=== PATIENT | male | born 1985 | race Two or more races ===

== ENCOUNTER 2019-03-08 16:57 | Inpatient (IN) | payer OTHER ==
[2019-03-08 17:07] VITALS: BMI 29.8
--- NOTE | 2019-03-08 17:10 | PDOC ---
Rapid Medical Evaluation Time Seen by Provider: 03/08/19 17:04 Medical Evaluation: 03/08/19 17:05 Pt presents to the ER after falling at [employer]. He states he was dizzy and fell three times and hit his head. Denies blacking out. Family states he was diaphoretic after coming out of the bathroom. Exam: no gross neuro deficits, lungs CTAB. No obvious trauma Orders: EKG, labs, urine Pt to proceed to the ER for further evaluation Discharge Disposition - Diagnosis Pre-syncope - Referrals - Patient Instructions - Post Discharge Activity
[2019-03-08 18:36] LABS: BASO % 0.3 % (0-2.0); EOS % 0.5 % (0-4.5); HEMATOCRIT 44.9 % (35.4-49); HEMOGLOBIN 14.5 GM/dL (11.7-16.9); LYMPH % 14.9 % (8-40); MCH 27.3 pg (25.7-33.7); MCHC 32.4 g/dl (32.0-35.9); MEAN CELL VOLUME 84.2 fl (80-96); MEAN PLT VOLUME 9.5 fl (7.5-11.1); MONO % 9.5 % (3.8-10.2); NEUT % 74.8 % (42.8-82.8); PLATELET COUNT 200 K/MM3 (134-434); RBC 5.33 M/mm3 (4.00-5.60); RDW 14.1 % (11.9-15.9); WHITE BLOOD COUNT 15.6 K/mm3 (4.0-10.0)
[2019-03-08 18:41] LABS: URINE APPEARANCE CLEAR; URINE BILIRUBIN NEGATIVE (NEGATIVE); URINE COLOR YELLOW; URINE GLUCOSE (UA) NEGATIVE (NEGATIVE); URINE KETONE NEGATIVE (NEGATIVE); URINE LEUK ESTERASE NEGATIVE (NEGATIVE); URINE NITRITE NEGATIVE (NEGATIVE); URINE PROTEIN NEGATIVE (NEGATIVE); URINE UROBILINOGEN 0.2 mg/dL (0.2-1.0)
[2019-03-08 18:56] LABS: ALBUMIN 4.2 g/dl (3.4-5.0); ALK PHOS 79 U/L (45-117); ANION GAP 7 MMOL/L (8-16); BILIRUBIN,TOTAL 0.3 mg/dL (0.2-1); BLOOD UREA NITROGEN 18.4 mg/dL (7-18); CALCIUM 9.5 mg/dL (8.5-10.1); CHLORIDE 106 mmol/L (98-107); CO2 26 mmol/L (21-32); CREATININE 1.4 mg/dL (0.55-1.3); GLUCOSE,RANDOM 110 mg/dL (74-106); POTASSIUM 3.4 mmol/L (3.5-5.1); SGOT/AST 23 U/L (15-37); SGPT/ALT 58 U/L (13-61); SODIUM 139 mmol/L (136-145); TOT PROT 7.7 g/dl (6.4-8.2)
--- NOTE | 2019-03-08 19:38 | PDOC ---
*Physical Exam - Vital Signs Last Vital Signs Temp Pulse Resp BP Pulse Ox 97.8 F 116 H 14 160/85 98 03/08/19 17:04 03/08/19 17:04 03/08/19 17:04 03/08/19 17:04 03/08/19 17:04 ED Treatment Course - LABORATORY CBC & Chemistry Diagram: 03/08/19 18:10 03/08/19 18:10 - ADDITIONAL ORDERS Additional order review: Laboratory Results 03/08/19 03/08/19 18:20 18:10 Sodium 139 Potassium 3.4 L Chloride 106 Carbon Dioxide 26 Anion Gap 7 L BUN 18.4 H Creatinine 1.4 H Est GFR (CKD-EPI)AfAm 77.04 Est GFR (CKD-EPI)NonAf 66.47 Random Glucose 110 H Calcium 9.5 Total Bilirubin 0.3 AST 23 ALT 58 Alkaline Phosphatase 79 Total Protein 7.7 Albumin 4.2 Urine Color Yellow Urine Appearance Clear Urine pH 5.0 Ur Specific [place] 1.017 Urine Protein Negative Urine Glucose (UA) Negative Urine Ketones Negative Urine Blood Negative Urine Nitrite Negative Urine Bilirubin Negative Urine Urobilinogen 0.2 Ur Leukocyte Esterase Negative 03/08/19 18:10 RBC 5.33 MCV 84.2 MCHC 32.4 RDW 14.1 MPV 9.5 Neutrophils % 74.8 Lymphocytes % 14.9 Monocytes % 9.5 Eosinophils % 0.5 Basophils % 0.3 Medical Decision Making - Medical Decision Making 03/08/19 19:38 Patient seen by the advanced practice provider under my direct supervision. Ancillary testing reviewed as necessary. I agree with plan as outlined by the advanced practice provider. Discharge - Discharge Information Problems reviewed: Yes Clinical Impression/Diagnosis: Pre-syncope - Follow up/Referral Referrals: ON STAFF,NOT [Primary Care Provider] - - Patient Discharge Instructions - Post Discharge Activity
--- NOTE | 2019-03-08 21:03 | PDOC ---
History of Present Illness - General Chief Complaint: Syncope/Near Syncope Stated Complaint: PAST OUT Time Seen by Provider: 03/08/19 17:04 History Source: Patient Exam Limitations: No Limitations - History of Present Illness Initial Comments: 03/08/19 20:59 HISTORY OF PRESENT ILLNESS: Is a 33-year-old male past medical history of asthma presents to the emergency department for evaluation status post syncopal episode x3 today. Patient reports she was at the [employer] and while playing the game started to feel "drowsy." Patient reports this caused him to sit down twice without any loss of consciousness. Patient then went to the bathroom to urinate and when he splashed water on his face became lightheaded and fell to the ground. Patient reports he struck his head on the concrete floor of the bathroom. Patient denies any oral trauma or incontinence of urine or stool. Patient denies fevers, chills, headaches, chest pain, shortness of breath, abdominal pain, nausea, vomiting. No recent travel or sick contacts. PAST MEDICAL HISTORY: Asthma SURGICAL HISTORY: Denies ALLERGIES: No known drug allergies REVIEW OF SYSTEMS General/Constitutional: Denies fever or chills. Denies weakness, weight change. HEENT: Denies change in vision. Denies ear pain or discharge. Denies sore throat. Cardiovascular: See HPI Respiratory: Denies cough, wheezing, or hemoptysis. Gastrointestinal: Denies nausea, vomiting, diarrhea or constipation. Denies rectal bleeding. Genitourinary: Denies dysuria, frequency, or change in urination. Musculoskeletal: Denies joint or muscle swelling or pain. Denies neck or back pain. Skin and breasts: Denies rash or easy bruising. Neurologic: Denies headache, vertigo, loss of consciousness, or loss of sensation. Psychiatric: Denies depression or anxiety. Endocrine: Denies increased thirst. Denies abnormal weight change. Hematologic/Lymphatic: Denies anemia, easy bleeding, or history of blood clots. Allergic/Immunologic: Denies hives or skin allergy. Denies latex allergy. PHYSICAL EXAM General Appearance: Well-appearing, appropriately dressed. No apparent distress , no intoxication. HEENT: Normocephalic. Atraumatic. EOMI, PERRLA, normal ENT inspection, normal voice, TMs normal, pharynx normal. No conjunctival pallor. No photophobia, scleral icterus. Neck: Supple. Trachea midline. No tenderness, rigidity, carotid bruit, stridor , lymphadenopathy, or thyromegaly. Respiratory/Chest: Lungs CTAB. No shortness of breath, chest tenderness, respiratory distress, accessory muscle use. No crackles, rales, rhonchi, stridor , wheezing, dullness Cardiovascular: RRR. S1, S2. No JVD, murmur, bradycardia, tachycardia. Vascular Pulses: Dorsalis-Pedis (R): 2+, Dorsalis-Pedis (L): 2+ Gastrointestinal/Abdominal: Normal bowel sounds. Abdomen soft, non-distended. No tenderness or rebound tenderness. No organomegaly, pulsatile mass, guarding, hernia, hepatomegaly, splenomegaly. Lymphatic: No adenopathy, tenderness. Musculoskeletal/Extremities: Normal inspection. FROM of all extremities, normal capillary refill. Pelvis Stable. No CVA tenderness. No tenderness to extremities, pedal edema, swelling, erythema or deformity. Integumentary: Appropriate color, dry, warm. No cyanosis, erythema, jaundice or rash Neurologic: [employer] II-XII intact. Fully oriented, alert. Appropriate mood/affect. Motor strength 5/5. No appreciable EOM palsy, facial droop or sensory deficit. Past History - Past Medical History Allergies/Adverse Reactions: Allergies Allergy/AdvReac Type Severity Reaction Status Date / Time No Known Allergies Allergy Verified 03/08/19 17:08 Asthma: Yes COPD: No - Psycho Social/Smoking Cessation Hx Smoking History: Never smoked Hx Alcohol Use: No Drug/Substance Use Hx: No *Physical Exam - Vital Signs Last Vital Signs Temp Pulse Resp BP Pulse Ox 97.3 F L 100 H 20 128/79 99 03/08/19 23:32 03/08/19 23:32 03/08/19 23:32 03/08/19 23:32 03/08/19 23:32 ED Treatment Course - LABORATORY CBC & Chemistry Diagram: 03/08/19 18:10 03/08/19 18:10 - ADDITIONAL ORDERS Additional order review: Laboratory Results 03/08/19 03/08/19 03/08/19 22:30 18:20 18:10 D-Dimer < 215 Sodium 139 Potassium 3.4 L Chloride 106 Carbon Dioxide 26 Anion Gap 7 L BUN 18.4 H Creatinine 1.4 H Est GFR (CKD-EPI)AfAm 77.04 Est GFR (CKD-EPI)NonAf 66.47 Random Glucose 110 H Calcium 9.5 Total Bilirubin 0.3 AST 23 ALT 58 Alkaline Phosphatase 79 Creatine Kinase 383 H Creatine Kinase Index 0.3 CK-MB (CK-2) 1.4 Troponin I < 0.02 Total Protein 7.7 Albumin 4.2 Urine Color Yellow Urine Appearance Clear Urine pH 5.0 Ur Specific [place] 1.017 Urine Protein Negative Urine Glucose (UA) Negative Urine Ketones Negative Urine Blood Negative Urine Nitrite Negative Urine Bilirubin Negative Urine Urobilinogen 0.2 Ur Leukocyte Esterase Negative 03/08/19 00:00 D-Dimer Sodium Potassium Chloride Carbon Dioxide Anion Gap BUN Creatinine Est GFR (CKD-EPI)AfAm Est GFR (CKD-EPI)NonAf Random Glucose Calcium Total Bilirubin AST ALT Alkaline Phosphatase Creatine Kinase Creatine Kinase Index CK-MB (CK-2) Troponin I < 0.02 Total Protein Albumin Urine Color Urine Appearance Urine pH Ur Specific [place] Urine Protein Urine Glucose (UA) Urine Ketones Urine Blood Urine Nitrite Urine Bilirubin Urine Urobilinogen Ur Leukocyte Esterase 03/08/19 18:10 RBC 5.33 MCV 84.2 MCHC 32.4 RDW 14.1 MPV 9.5 Neutrophils % 74.8 Lymphocytes % 14.9 Monocytes % 9.5 Eosinophils % 0.5 Basophils % 0.3 - RADIOLOGY Radiology Studies Ordered: Category Date Time Status CERVICAL SPINE CT W/O CONTR [CT] Stat CT Scan 03/08/19 20:[address] WITHOUT CONTRAST [CT] Stat CT Scan 03/08/19 20:53 Completed - Medications Given in the ED: ED Medications Discontinued Medications Generic Name Dose Route Start Last Admin Trade Name Freq PRN Reason Stop Dose Admin Sodium Chloride 1,000 mls @ 1,000 mls/hr 03/08/19 21:04 03/08/19 22:32 Normal Saline - IV 03/08/19 22:03 1,000 mls/hr ASDIR STA Administration Medical Decision Making - Medical Decision Making 03/08/19 21:01 A/P: 33-year-old male with syncopal episode today Physical exam is within normal limits Given story this is likely a vasovagal episode. EKG Laboratory testing performed at [facility] evaluation reveals leukocytosis of 15.6 without shift. Creatinine of 1.5. Normal saline [address] of the head and C-spine Add cardiac profile to existing laboratory studies Reassess 03/08/19 22:33 CT of the head as read by Dr. Galloway: No CT evidence of acute intracranial pathology. 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 MRI evaluation is suggested, nonemergent unless otherwise clinically indicated. CT of the C-spine as read by Dr. Galloway: No fracture is identified. Possible mild Chiari type I malformation. MRI evaluation is suggested, nonemergent unless otherwise clinically indicated. EKG sinus tach with rate of 122. Normal intervals present with QTC 436 ms. Normal axis noted. Biphasic T waves noted in V4 and V5. D-dimer is pending 03/08/19 23:48 D-dimer is negative. Given radiologic findings and history I will admit the patient for syncope to the hospitalist service. 03/09/19 00:40 Case has been discussed with Dr. Hawk of the hospitalist service who accepts for telemetry observation under Dr. Melton. 03/09/19 00:42 Orthostatic vital signs are as follows: Lying down-120/80; heart rate 109 [id number]; 111 Standing- 120/89; 113 Discharge - Discharge Information Problems reviewed: Yes Clinical Impression/Diagnosis: Syncope Qualifiers: Syncope type: unspecified Qualified Code(s): R55 - Syncope and collapse Condition: Fair - Admission Yes - Follow up/Referral Referrals: ON STAFF,NOT [Primary Care Provider] - - Patient Discharge Instructions - Post Discharge Activity
[2019-03-08] MEDS ORDERED: SODIUM CHLORIDE 1,000 ML IV STA (21:04)
--- NOTE | 2019-03-09 00:51 | PN ---
Teaching Attending Note Name of Resident: Cintia Araujo ATTENDING PHYSICIAN STATEMENT I saw and evaluated the patient. I reviewed the resident's note and discussed the case with the resident. I agree with the resident's findings and plan as documented. SUBJECTIVE: Patient is a 33 year old man with PMH of Asthma and Developmental delay presents to the ER for evaluation status post three syncopal episode today. Patient reports she was at the [employer] and while playing the game started to feel "drowsy." Patient reports this caused him to sit down twice without any loss of consciousness. Patient then went to the bathroom to urinate and when he splashed water on his face became lightheaded and fell to the ground. Patient reports he struck his head on the concrete floor of the bathroom. Patient denies any oral trauma or incontinence of urine or stool. Patient denies fevers, chills, headaches, chest pain, shortness of breath, abdominal pain, nausea, vomiting. No recent travel or sick contacts. Denies tobacco alcohol or illicit drug use. OBJECTIVE: Alert and not orthostatic Vital Signs Period Temp Pulse Resp BP Sys/[place] Pulse Ox Last 24 Hr 97.3 F-97.8 F 100-116 14-20 128-160/79-85 98-99 HEENT: No Jaundice, eye redness or discharge, Dry mucous membrane, PERRLA, EOMI. Normocephalic, atraumatic. External ears are normal and hearing is grossly intact. No nasal discharge. Neck: Supple, nontender. No palpable adenopathy or thyromegaly. No JVD Chest: Good effort. Clear to auscultation and percussion. Heart: Regular. No S3, rub or murmur Abdomen: Not distended, soft, nontender and no HSM. No rebound or guarding. Normal bowel sounds. Ext: Peripheral pulses intact. No leg edema. Skin: Warm and dry. No petechiae, rash or ecchymosis. Neuro: Alert. Oriented x3. CN 2-12 grossly intact. Sensation grossly intact in all four extremities and DTR are symmetric. Psych: Appropriate mood and affect. Good insight. Abnormal Lab Results 03/08/19 03/08/19 18:10 18:10 WBC 15.6 H Absolute Neuts (auto) 11.7 H Potassium 3.4 L Anion Gap 7 L BUN 18.4 H Creatinine 1.4 H Random Glucose 110 H Creatine Kinase 383 H ASSESSMENT AND PLAN: 1. Syncope - Cause unclear. Rhabdomyolysis, CHILANGO, hypokalemia and leukocytosis are unexplained. No obvious source of infection. CXR didnot show any acute abnormality. CT of the head/c-spine as read by Dr. Galloway showed no CT evidence of acute intracranial pathology but probable mild Chiari type I malformation. MRI evaluation is suggested. EKG shows sinus tachycardia and nonspecific ST-T wave changes. Initial troponin is negative. Will admit to telemetry, get urine toxicology, urine K+, serum Mg+, phosphate, carotid doppler, REPEAT CBC, hydrate gently and trend CPK. Give IV and PO KCL. Consult Cardiology and Neurology. 2. CHILANGO with rhabdomyolysis - Cause unclear. Will hydrate, monitor urine output and trend CPK. If azotemia persists after hydration, will get kidney sonogram. Consult nephrology and avoid nephrotoxic agents such as NSAIDS, aminoglycosides , contrast dyes and certain Alternative medicine products. 3. Overweight Counseled on the risks associated with being overweight. Will provide patient all the necessary assistance, counseling and positive reinforcement to facilitate weight loss. Consult restaurant management internship. 4. DVT prophylaxis - Heparin 5000u sq tid. 5. Advance directives - Full code
[2019-03-09] MEDS ORDERED: SODIUM CHLORIDE 1,000 ML IV SCH (04:15)
[2019-03-09] MEDS ORDERED: POTASSIUM CHLORIDE TABS 20 MEQ TABLET.ER (FP) PO ONE (04:17)
--- NOTE | 2019-03-09 04:25 | HP ---
CHIEF COMPLAINT: Syncope PCP: None HISTORY OF PRESENT ILLNESS: Pt is a 33 y/o M w/ pmhx of Asthma presenting to ED complaining of 3 episodes of syncope yesterday. The pt was at his nephew's birthday green party, when he started feeling hot sweatu and weak. He went to the restroom where he threw some cold water on his face and then he experienced dizziness and LOC x3. Pt reports that whomever found him said that he hit his head on the floor but he did not recall doing so. Pt denies blurry vision, fever, N/V, MERCADO, SOB, CP, ABD pain, urinary or bowel incontinence, or any urinary changes. Pt's family is at bedside, however they did not witness the event. Per the family, the patient has some history of developmental delay and is easily confused. On interview the pt is very friendly, polite and agreeable however he does not appear to be the best historian as he cannot recall much about the syncopal episodes. He denies anything like this happening to him before. ER course was notable for: (1) 1L NS IV (2) EKG with sinus tachycardia (122), QTc 436 (3) CT head: no acute pathology, incidentally found possible Chiari I malformation Recent Travel: denies PAST MEDICAL HISTORY: Asthma, Developmental delays PAST SURGICAL HISTORY: denies Social History: Smoking: denies Alcohol: denies Drugs: denies Occupation: Currently, unemployed but previously worked in a [employer] Residence: Pt lives with his grandmother Fhx: Father: none; Mother: Asthma Allergies No Known Allergies Allergy (Verified 03/08/19 17:08) HOME MEDICATIONS: REVIEW OF SYSTEMS CONSTITUTIONAL: diaphoresis, Absent: fever, chills, generalized weakness, malaise, loss of appetite, weight change HEENT: Absent: rhinorrhea, nasal congestion, throat pain, throat swelling, difficulty swallowing, mouth swelling, ear pain, eye pain, visual changes CARDIOVASCULAR: Absent: chest pain, syncope, palpitations, irregular heart rate, lightheadedness , peripheral edema RESPIRATORY: Absent: cough, shortness of breath, dyspnea with exertion, orthopnea, wheezing, stridor, hemoptysis GASTROINTESTINAL: Absent: abdominal pain, abdominal distension, nausea, vomiting, diarrhea, constipation, melena, hematochezia GENITOURINARY: Absent: dysuria, frequency, urgency, hesitancy, hematuria, flank pain, genital pain MUSCULOSKELETAL: Absent: myalgia, arthralgia, joint swelling, back pain, neck pain SKIN: Absent: rash, itching, pallor HEMATOLOGIC/IMMUNOLOGIC: Absent: easy bleeding, easy bruising, lymphadenopathy, frequent infections ENDOCRINE: Absent: unexplained weight gain, unexplained weight loss, heat intolerance, cold intolerance NEUROLOGIC: dizziness Absent: headache, focal weakness or paresthesias, , unsteady gait, seizure, mental status changes, bladder or bowel incontinence PSYCHIATRIC: Absent: anxiety, depression, suicidal or homicidal ideation, hallucinations. PHYSICAL EXAMINATION Vital Signs - 24 hr 03/08/19 03/08/19 17:04 23:32 Temperature 97.8 F 97.3 F L Pulse Rate 116 H Pulse Rate [ 100 H Apical] Respiratory 14 20 Rate Blood Pressure 160/85 Blood Pressure 128/79 [Right Arm] O2 Sat by Pulse 98 99 Oximetry (%) GENERAL: Awake, alert, and fully oriented, in no acute distress. HEAD: Normal with no signs of trauma. EYES: Pupils equal, round and reactive to light, extraocular movements intact, sclera anicteric, conjunctiva clear. No lid lag. EARS, NOSE, THROAT: Ears normal, nares patent, oropharynx clear without exudates. Dry mucous membranes. NECK: Normal range of motion, supple without lymphadenopathy, JVD, or masses. LUNGS: Breath sounds equal, clear to auscultation bilaterally. No wheezes, and no crackles. No accessory muscle use. HEART: Regular rate and rhythm, normal S1 and S2 without murmur, rub or gallop. ABDOMEN: Soft, nontender, not distended, normoactive bowel sounds, no guarding, no rebound, no masses. No hepatomegaly or splenomegaly. MUSCULOSKELETAL: Normal range of motion at all joints. No bony deformities or tenderness. No CVA tenderness. UPPER EXTREMITIES: 2+ pulses, warm, well-perfused. No cyanosis. No clubbing. No peripheral edema. LOWER EXTREMITIES: 2+ pulses, warm, well-perfused. No calf tenderness. No peripheral edema. NEUROLOGICAL: Cranial nerves II-XII intact. Normal speech. PSYCHIATRIC: Cooperative. Good eye contact. Appropriate mood and affect. SKIN: Warm, dry, normal turgor, no rashes or lesions noted, normal capillary refill. Laboratory Results - last 24 hr 03/08/19 03/08/19 03/08/19 00:00 18:10 18:10 WBC 15.6 H RBC 5.33 Hgb 14.5 Hct 44.9 MCV 84.2 MCH 27.3 MCHC 32.4 RDW 14.1 Plt Count 200 MPV 9.5 Absolute Neuts (auto) 11.7 H Neutrophils % 74.8 Lymphocytes % 14.9 Monocytes % 9.5 Eosinophils % 0.5 Basophils % 0.3 Nucleated RBC % 0 D-Dimer Sodium 139 Potassium 3.4 L Chloride 106 Carbon Dioxide 26 Anion Gap 7 L BUN 18.4 H Creatinine 1.4 H Est GFR (CKD-EPI)AfAm 77.04 Est GFR (CKD-EPI)NonAf 66.47 Random Glucose 110 H Calcium 9.5 Total Bilirubin 0.3 AST 23 ALT 58 Alkaline Phosphatase 79 Creatine Kinase 383 H Creatine Kinase Index 0.3 CK-MB (CK-2) 1.4 Troponin I < 0.02 < 0.02 Total Protein 7.7 Albumin 4.2 Urine Color Urine Appearance Urine pH Ur Specific [place] Urine Protein Urine Glucose (UA) Urine Ketones Urine Blood Urine Nitrite Urine Bilirubin Urine Urobilinogen Ur Leukocyte Esterase 03/08/19 03/08/19 18:20 22:30 WBC RBC Hgb Hct MCV MCH MCHC RDW Plt Count MPV Absolute Neuts (auto) Neutrophils % Lymphocytes % Monocytes % Eosinophils % Basophils % Nucleated RBC % D-Dimer < 215 Sodium Potassium Chloride Carbon Dioxide Anion Gap BUN Creatinine Est GFR (CKD-EPI)AfAm Est GFR (CKD-EPI)NonAf Random Glucose Calcium Total Bilirubin AST ALT Alkaline Phosphatase Creatine Kinase Creatine Kinase Index CK-MB (CK-2) Troponin I Total Protein Albumin Urine Color Yellow Urine Appearance Clear Urine pH 5.0 Ur Specific [place] 1.017 Urine Protein Negative Urine Glucose (UA) Negative Urine Ketones Negative Urine Blood Negative Urine Nitrite Negative Urine Bilirubin Negative Urine Urobilinogen 0.2 Ur Leukocyte Esterase Negative ASSESSMENT/PLAN: Pt is a 33 y/o M w/ pmhx of Asthma presenting to ED complaining of 3 episodes of syncope yesterday. # Syncope - etiology unclear, labs also revealed rhabdo (CK 383), CHILANGO (BUN/ Cr 18.4/1.4), hypokalemia (3.4), and leukocytosis (15.6). No obvious source of infection. CXR didnot show any acute abnormality. CT of the head/c-spine as read by Dr. Galloway showed no CT evidence of acute intracranial pathology but probable mild Chiari type I malformation. EKG shows sinus tachycardia and nonspecific ST-T wave changes. Initial troponin is negative. - admit to tele obs - utox - urine K+ - serum Mg2+ - Phos - f/u repeat CBC - trend CPK - carotid dopplers - MRI head w/o contrast - gentle hydration with IVNS @75cc/h - Consult Neurology> in case sxcould be related to chiari malformation - consider consulting Consult Cardiology in this otherwise young and healthy pt with unexplained syncope #Hypo K+ - Give IV and PO KCL - f/u CBC replete PRN # CHILANGO- (BUN/ Cr 18.4/1.4), labs also revealed rhabdo (CK 383), etiology unclear though per family report he was found down in the bathroom by security after syncopal episode - hydrate with IVF - monitor urine output - trend CPK. - If azotemia persists after hydration, will get kidney sonogram. - Consult nephrology - avoid nephrotoxic agents #FEN - IV NS @ 75cc - replete PRN - regular diet #PPx DVT prophylaxis - Heparin 5000u sq tid # Dispo - Admit to tele obs, full code Visit type - Emergency Visit Emergency Visit: Yes ED Registration Date: 03/09/19 Care time: The patient presented to the Emergency Department on the above date and was hospitalized for further evaluation of their emergent condition. - New Patient This patient is new to me today: Yes Date on this admission: 03/09/19 - Critical Care Critical Care patient: No ATTENDING PHYSICIAN STATEMENT I saw and evaluated the patient. I reviewed the resident's note and discussed the case with the resident. I agree with the resident's findings and plan as documented. SUBJECTIVE: OBJECTIVE: ASSESSMENT AND PLAN:
[2019-03-09 04:33] LABS: BASO % 0.2 % (0-2.0); EOS % 1.5 % (0-4.5); HEMATOCRIT 40.2 % (35.4-49); HEMOGLOBIN 13.1 GM/dL (11.7-16.9); LYMPH % 36.8 % (8-40); MCH 27.4 pg (25.7-33.7); MCHC 32.4 g/dl (32.0-35.9); MEAN CELL VOLUME 84.6 fl (80-96); MONO % 7.3 % (3.8-10.2); NEUT % 54.2 % (42.8-82.8); PLATELET COUNT 188 K/MM3 (134-434); RBC 4.76 M/mm3 (4.00-5.60); RDW 14.1 % (11.9-15.9); WHITE BLOOD COUNT 11.6 K/mm3 (4.0-10.0)
[2019-03-09] MEDS: KCL 10 MEQ IVPB 10 MEQ/100 ML INFUS.BAG IVPB SCH ×3 (04:50→06:45)
[2019-03-09] MEDS ORDERED: HEPARIN NA (PORCINE) 5,000 UNITS/ML 1ML VIAL SQ SCH (06:00)
[2019-03-09 06:03] LABS: BASO % 0.2 % (0-2.0); EOS % 1.6 % (0-4.5); HEMATOCRIT 40.5 % (35.4-49); HEMOGLOBIN 13.4 GM/dL (11.7-16.9); LYMPH % 35.8 % (8-40); MCH 27.6 pg (25.7-33.7); MEAN CELL VOLUME 83.7 fl (80-96); MEAN PLT VOLUME 9.3 fl (7.5-11.1); MONO % 7.2 % (3.8-10.2); NEUT % 55.2 % (42.8-82.8); PLATELET COUNT 173 K/MM3 (134-434); RBC 4.83 M/mm3 (4.00-5.60); RDW 14.2 % (11.9-15.9)
[2019-03-09] MEDS ORDERED: KCL 10 MEQ IVPB 10 MEQ/100 ML INFUS.BAG IVPB ONE (06:35)
[2019-03-09 06:37] LABS: ALBUMIN 3.6 g/dl (3.4-5.0); BILIRUBIN,TOTAL 0.4 mg/dL (0.2-1); BLOOD UREA NITROGEN 14.1 mg/dL (7-18); CALCIUM 8.8 mg/dL (8.5-10.1); PHOSPHOROUS 3.7 mg/dL (2.5-4.9); TOT PROT 6.7 g/dl (6.4-8.2)
[2019-03-09 07:31] LABS: COCAINE, UR NEGATIVE ng/ml (CUTOFF=300); METHADONE, UR NEGATIVE ng/ml (CUTOFF=300); OPIATES, URI NEGATIVE ng/ml (CUTOFF=300); PHENCYCLIDINE,URINE NEGATIVE ng/ml (CUTOFF=25); URINE AMPHETAMINES NEGATIVE ng/ml (CUTOFF=500); URINE BARBITURATES NEGATIVE ng/ml (CUTOFF=200); URINE BENZODIAZEPINES NEGATIVE ng/ml (CUTOFF=200)
--- NOTE | 2019-03-09 09:32 | CONSULT ---
Consult - text type - Consultation Consultation Note: Neurology CHIEF COMPLAINT: Syncope PCP: None HISTORY OF PRESENT ILLNESS: 33 y/o M w/ pmhx of Asthma presenting to ED complaining of 3 episodes of syncope yesterday. The pt was at his nephew's birthday democr[employer], when he started feeling hot sweats and weak. He went to the restroom where he threw some cold water on his face and then he experienced dizziness and LOC x3. Pt reports that whomever found him said that he hit his head on the floor but he did not recall doing so. Pt denies blurry vision, fever, N/V, MERCADO, SOB, CP, ABD pain, urinary or bowel incontinence, or any urinary changes. Pt's family is at bedside, however they did not witness the event. Per the family, the patient has some history of developmental delay and is easily confused. CT head ccompleted and without any acute changes. The patient denies any symptoms and deficits and reports he would like to go home. I informed him that he did have some hypokalemia which may be etiology to his event. Also discussed importance of hydration and he was in agreement with this as well. Neurologically remained stable and at baseline at this time. Does not require MRI of the brain as there are no focal deficits. Recent Travel: denies PAST MEDICAL HISTORY: Asthma, Developmental delays PAST SURGICAL HISTORY: denies Social History: Smoking: denies Alcohol: denies Drugs: denies Occupation: Currently, unemployed but previously worked in a [employer] Residence: Pt lives with his grandmother Fhx: Father: none; Mother: Asthma Allergies No Known Allergies Allergy (Verified 03/08/19 17:08) HOME MEDICATIONS: REVIEW OF SYSTEMS CONSTITUTIONAL: diaphoresis, Absent: fever, chills, generalized weakness, malaise, loss of appetite, weight change HEENT: Absent: rhinorrhea, nasal congestion, throat pain, throat swelling, difficulty swallowing, mouth swelling, ear pain, eye pain, visual changes CARDIOVASCULAR: Absent: chest pain, syncope, palpitations, irregular heart rate, lightheadedness , peripheral edema RESPIRATORY: Absent: cough, shortness of breath, dyspnea with exertion, orthopnea, wheezing, stridor, hemoptysis GASTROINTESTINAL: Absent: abdominal pain, abdominal distension, nausea, vomiting, diarrhea, constipation, melena, hematochezia GENITOURINARY: Absent: dysuria, frequency, urgency, hesitancy, hematuria, flank pain, genital pain MUSCULOSKELETAL: Absent: myalgia, arthralgia, joint swelling, back pain, neck pain SKIN: Absent: rash, itching, pallor HEMATOLOGIC/IMMUNOLOGIC: Absent: easy bleeding, easy bruising, lymphadenopathy, frequent infections ENDOCRINE: Absent: unexplained weight gain, unexplained weight loss, heat intolerance, cold intolerance NEUROLOGIC: dizziness Absent: headache, focal weakness or paresthesias, , unsteady gait, seizure, mental status changes, bladder or bowel incontinence PSYCHIATRIC: Absent: anxiety, depression, suicidal or homicidal ideation, hallucinations. PHYSICAL EXAMINATION Vital Signs Period Temp Pulse Resp BP Sys/[place] Pulse Ox Last 24 Hr 97.3 F-97.8 F 100-116 14-20 128-160/79-93 97-99 GENERAL: Awake, alert, and fully oriented, in no acute distress. HEAD: Normal with no signs of trauma. EYES: Pupils equal, round and reactive to light, extraocular movements intact, sclera anicteric, conjunctiva clear. No lid lag. EARS, NOSE, THROAT: Ears normal, nares patent, oropharynx clear without exudates. Dry mucous membranes. NECK: Normal range of motion, supple without lymphadenopathy, JVD, or masses. LUNGS: Breath sounds equal, clear to auscultation bilaterally. No wheezes, and no crackles. No accessory muscle use. HEART: Regular rate and rhythm, normal S1 and S2 without murmur, rub or gallop. ABDOMEN: Soft, nontender, not distended, normoactive bowel sounds, no guarding, no rebound, no masses. No hepatomegaly or splenomegaly. MUSCULOSKELETAL: Normal range of motion at all joints. No bony deformities or tenderness. No CVA tenderness. UPPER EXTREMITIES: 2+ pulses, warm, well-perfused. No cyanosis. No clubbing. No peripheral edema. LOWER EXTREMITIES: 2+ pulses, warm, well-perfused. No calf tenderness. No peripheral edema. NEUROLOGICAL: Cranial nerves II-XII intact. Normal speech, strength intact in upper and lower extremities, sensory normal,, finger-nose intact PSYCHIATRIC: Cooperative. Good eye contact. Appropriate mood and affect. SKIN: Warm, dry, normal turgor, no rashes or lesions noted, normal capillary refill. Laboratory Results - last 24 hr 03/08/19 03/08/19 03/08/19 00:00 18:10 18:10 WBC 15.6 H RBC 5.33 Hgb 14.5 Hct 44.9 MCV 84.2 MCH 27.3 MCHC 32.4 RDW 14.1 Plt Count 200 MPV 9.5 Absolute Neuts (auto) 11.7 H Neutrophils % 74.8 Lymphocytes % 14.9 Monocytes % 9.5 Eosinophils % 0.5 Basophils % 0.3 Nucleated RBC % 0 D-Dimer Sodium 139 Potassium 3.4 L Chloride 106 Carbon Dioxide 26 Anion Gap 7 L BUN 18.4 H Creatinine 1.4 H Est GFR (CKD-EPI)AfAm 77.04 Est GFR (CKD-EPI)NonAf 66.47 Random Glucose 110 H Calcium 9.5 Total Bilirubin 0.3 AST 23 ALT 58 Alkaline Phosphatase 79 Creatine Kinase 383 H Creatine Kinase Index 0.3 CK-MB (CK-2) 1.4 Troponin I < 0.02 < 0.02 Total Protein 7.7 Albumin 4.2 Urine Color Urine Appearance Urine pH Ur Specific [place] Urine Protein Urine Glucose (UA) Urine Ketones Urine Blood Urine Nitrite Urine Bilirubin Urine Urobilinogen Ur Leukocyte Esterase 03/08/19 03/08/19 18:20 22:30 WBC RBC Hgb Hct MCV MCH MCHC RDW Plt Count MPV Absolute Neuts (auto) Neutrophils % Lymphocytes % Monocytes % Eosinophils % Basophils % Nucleated RBC % D-Dimer < 215 Sodium Potassium Chloride Carbon Dioxide Anion Gap BUN Creatinine Est GFR (CKD-EPI)AfAm Est GFR (CKD-EPI)NonAf Random Glucose Calcium Total Bilirubin AST ALT Alkaline Phosphatase Creatine Kinase Creatine Kinase Index CK-MB (CK-2) Troponin I Total Protein Albumin Urine Color Yellow Urine Appearance Clear Urine pH 5.0 Ur Specific [place] 1.017 Urine Protein Negative Urine Glucose (UA) Negative Urine Ketones Negative Urine Blood Negative Urine Nitrite Negative Urine Bilirubin Negative Urine Urobilinogen 0.2 Ur Leukocyte Esterase Negative ASSESSMENT/PLAN: 33 y/o M w/ pmhx of Asthma presenting to ED complaining of 3 episodes of syncope yesterday. The pt was at his nephew's birthday [employer], when he started feeling hot sweats and weak. He went to the restroom where he threw some cold water on his face and then he experienced dizziness and LOC x3. Pt reports that whomever found him said that he hit his head on the floor but he did not recall doing so. Pt denies blurry vision, fever, N/V, MERCADO, SOB, CP, ABD pain, urinary or bowel incontinence, or any urinary changes. Pt's family is at bedside, however they did not witness the event. Per the family, the patient has some history of developmental delay and is easily confused. CT head ccompleted and without any acute changes. The patient denies any symptoms and deficits and reports he would like to go home. I informed him that he did have some hypokalemia which may be etiology to his event. Also discussed importance of hydration and he was in agreement with this as well. Neurologically remained stable and at baseline at this time. Does not require MRI of the brain as there are no focal deficits. 6 to be workup as per primary team, Chiari I malformation noted onscan incidental finding and less likely to be etiology of his complaints, can be managed further outpatient. Monitor and optimize underlying electrolyte status. Adequate hydration recommended. Can follow-up as outpatient.
--- NOTE | 2019-03-09 09:45 | EKG ---
Test Reason : Blood Pressure : / mmHG Vent. Rate : 102 BPM Atrial Rate : 102 BPM P-R Int : 148 ms QRS Dur : 072 ms QT Int : 326 ms P-R-T Axes : 045 006 044 degrees QTc Int : 424 ms POOR DATA QUALITY, INTERPRETATION MAY BE ADVERSELY AFFECTED SINUS TACHYCARDIA OTHERWISE NORMAL ECG WHEN COMPARED WITH ECG OF 08-MAR-2019 17:54, NON-SPECIFIC CHANGE IN ST SEGMENT IN LATERAL LEADS Confirmed by MD CARMINE, BILL ([id number]) on 03/09/2019 9:44:57 AM Referred By: Confirmed By:BILL LOU MD
--- NOTE | 2019-03-09 09:50 | DS ---
Physical Exam: SUBJECTIVE: Patient seen and examined OBJECTIVE: Vital Signs Period Temp Pulse Resp BP Sys/[place] Pulse Ox Last 24 Hr 97.3 F-97.8 F 100-116 14-20 128-160/79-93 97-99 PHYSICAL EXAM GENERAL: The patient is awake, alert, and fully oriented, in no acute distress. HEAD: Normal with no signs of trauma. EYES: PERRL, extraocular movements intact, sclera anicteric, conjunctiva clear. ENT: Ears normal, nares patent, oropharynx clear without exudates, moist mucous membranes. NECK: Trachea midline, full range of motion, supple. LUNGS: Breath sounds equal, clear to auscultation bilaterally, no wheezes, no crackles, no accessory muscle use. HEART: Regular rate and rhythm, S1, S2 without murmur, rub or gallop. ABDOMEN: Soft, nontender, nondistended, normoactive bowel sounds, no guarding, no rebound, no hepatosplenomegaly, no masses. EXTREMITIES: 2+ pulses, warm, well-perfused, no edema. NEUROLOGICAL: Cranial nerves II through XII grossly intact. Normal speech, gait not observed. PSYCH: Normal mood, normal affect. SKIN: Warm, dry, normal turgor, no rashes or lesions noted. LABS Laboratory Results - last 24 hr 03/08/19 03/08/19 03/08/19 00:00 18:10 18:10 WBC 15.6 H RBC 5.33 Hgb 14.5 Hct 44.9 MCV 84.2 MCH 27.3 MCHC 32.4 RDW 14.1 Plt Count 200 MPV 9.5 Absolute Neuts (auto) 11.7 H Neutrophils % 74.8 Lymphocytes % 14.9 Monocytes % 9.5 Eosinophils % 0.5 Basophils % 0.3 Nucleated RBC % 0 D-Dimer Sodium 139 Potassium 3.4 L Chloride 106 Carbon Dioxide 26 Anion Gap 7 L BUN 18.4 H Creatinine 1.4 H Est GFR (CKD-EPI)AfAm 77.04 Est GFR (CKD-EPI)NonAf 66.47 Random Glucose 110 H Calcium 9.5 Phosphorus Magnesium Total Bilirubin 0.3 AST 23 ALT 58 Alkaline Phosphatase 79 Creatine Kinase 383 H Creatine Kinase Index 0.3 CK-MB (CK-2) 1.4 Troponin I < 0.02 < 0.02 Total Protein 7.7 Albumin 4.2 Urine Color Urine Appearance Urine pH Ur Specific [place] Urine Protein Urine Glucose (UA) Urine Ketones Urine Blood Urine Nitrite Urine Bilirubin Urine Urobilinogen Ur Leukocyte Esterase Opiates Screen Methadone Screen Barbiturate Screen Phencyclidine Screen Ur Amphetamines Screen MDMA (Ecstasy) Screen Benzodiazepines Screen Cocaine Screen U Marijuana (THC) Screen 03/08/19 03/08/19 03/09/19 18:20 22:30 03:54 WBC 11.6 H RBC 4.76 Hgb 13.1 Hct 40.2 MCV 84.6 MCH 27.4 MCHC 32.4 RDW 14.1 Plt Count 188 MPV 9.0 Absolute Neuts (auto) 6.3 Neutrophils % 54.2 D Lymphocytes % 36.8 D Monocytes % 7.3 Eosinophils % 1.5 D Basophils % 0.2 Nucleated RBC % 0 D-Dimer < 215 Sodium Potassium Chloride Carbon Dioxide Anion Gap BUN Creatinine Est GFR (CKD-EPI)AfAm Est GFR (CKD-EPI)NonAf Random Glucose Calcium Phosphorus Magnesium Total Bilirubin AST ALT Alkaline Phosphatase Creatine Kinase Creatine Kinase Index CK-MB (CK-2) Troponin I Total Protein Albumin Urine Color Yellow Urine Appearance Clear Urine pH 5.0 Ur Specific [place] 1.017 Urine Protein Negative Urine Glucose (UA) Negative Urine Ketones Negative Urine Blood Negative Urine Nitrite Negative Urine Bilirubin Negative Urine Urobilinogen 0.2 Ur Leukocyte Esterase Negative Opiates Screen Methadone Screen Barbiturate Screen Phencyclidine Screen Ur Amphetamines Screen MDMA (Ecstasy) Screen Benzodiazepines Screen Cocaine Screen U Marijuana (THC) Screen 03/09/19 03/09/19 03/09/19 05:30 05:30 06:42 WBC 10.0 RBC 4.83 Hgb 13.4 Hct 40.5 MCV 83.7 MCH 27.6 MCHC 33.0 RDW 14.2 Plt Count 173 MPV 9.3 Absolute Neuts (auto) 5.5 Neutrophils % 55.2 Lymphocytes % 35.8 Monocytes % 7.2 Eosinophils % 1.6 Basophils % 0.2 Nucleated RBC % 0 D-Dimer Sodium 138 Potassium 4.0 Chloride 108 H Carbon Dioxide 24 Anion Gap 6 L BUN 14.1 Creatinine 1.0 Est GFR (CKD-EPI)AfAm 115.72 Est GFR (CKD-EPI)NonAf 99.85 Random Glucose 91 Calcium 8.8 Phosphorus 3.7 Magnesium 2.0 Total Bilirubin 0.4 AST 22 ALT 49 Alkaline Phosphatase 66 Creatine Kinase 339 H Creatine Kinase Index 0.2 CK-MB (CK-2) 1.0 Troponin I Total Protein 6.7 Albumin 3.6 Urine Color Urine Appearance Urine pH Ur Specific [place] Urine Protein Urine Glucose (UA) Urine Ketones Urine Blood Urine Nitrite Urine Bilirubin Urine Urobilinogen Ur Leukocyte Esterase Opiates Screen Negative Methadone Screen Negative Barbiturate Screen Negative Phencyclidine Screen Negative Ur Amphetamines Screen Negative MDMA (Ecstasy) Screen Negative Benzodiazepines Screen Negative Cocaine Screen Negative U Marijuana (THC) Screen Negative HOSPITAL COURSE: Date of Admission:03/09/19 Date of Discharge: 03/09/19 Discharge Summary Problems reviewed: Yes Reason For Visit: PAST OUT Current Active Problems Syncope (Acute) Condition: Improved - Instructions Diet, Activity, Other Instructions: You were seen here due to your fainting spell. You were hydrated through an IV and had your electrolytes corrected. Your imaging was all normal and there was nothing that we noted on produce inspector while here. MEDICATIONS: Please stay hydrated and eat a balanced diet with a multivitamin to help FOLLOW-UP: Please follow-up with Dr. Ma or another primary care doctor in 3-5 days to establish care Please follow-up with Dr. Stein (change coordinator) for a possible long-term produce inspector especially if the fainting continues to happen Please follow-up with Dr. Abdullahi in 2 weeks because of your brain scan. You may need an MRI, however this can be done outside the hospital. Referrals: Herbie Ma MD [Staff Physician] - (3-5 days to establish a primary care doctor) Jalen Abdullahi MD [Staff Physician] - Casey Stein MD [Staff Physician] - 1 Week (Possible Holter monitoring) Disposition: HOME - Home Medications Comprehensive Discharge Medication List: Ambulatory Orders NK [No Known Home Medication] 03/09/19 ATTENDING PHYSICIAN STATEMENT I saw and evaluated the patient. I reviewed the resident's note and discussed the case with the resident. I agree with the resident's findings and plan as documented. SUBJECTIVE: OBJECTIVE: ASSESSMENT AND PLAN:
--- NOTE | 2019-03-09 09:53 | EKG ---
Test Reason : Blood Pressure : / mmHG Vent. Rate : 122 BPM Atrial Rate : 122 BPM P-R Int : 144 ms QRS Dur : 084 ms QT Int : 306 ms P-R-T Axes : 048 021 055 degrees QTc Int : 436 ms SINUS TACHYCARDIA NONSPECIFIC ST ABNORMALITY ABNORMAL ECG NO PREVIOUS ECGS AVAILABLE Confirmed by MD CARMINE, BILL ([id number]) on 03/09/2019 9:53:30 AM Referred By: Confirmed By:BILL LOU MD
[2019-03-09] MEDS ORDERED: ENOXAPARIN NA (PORCINE) 40 MG/0.4 ML DISP.SYRIN SQ SCH (10:00)
[2019-03-09 10:35] VITALS: TEMP 97.8
[2019-03-09] MEDS ORDERED: SODIUM CHLORIDE 1,000 ML IV STA (12:35)
[2019-03-09 13:03] VITALS: BP 132/78; PULSE 94
== END 2019-03-09 13:45 | disposition home or self-care (01) | DRG 204 ==
LOC: JER 16:57 → JERBED 03-09 00:41 → OBSVTOIN 03-09 04:03
PROVIDERS: ADMIT Internal Medicine; ATTEND Internal Medicine
DX: R55 Syncope and collapse (principal); D72.829 Elevated white blood cell count, unspecified; R00.0 Tachycardia, unspecified; R62.50 Unspecified lack of expected normal physiological development in childhood; E87.6 Hypokalemia; M62.82 Rhabdomyolysis; G93.5 Compression of brain; N17.9 Acute kidney failure, unspecified
CPT/HCPCS: 36415; 70450-TC; 71046-TC-FY; 72125-TC; 80053; 80307; 81003; 82550; 82553; 83735; 84100; 84484; 85025; 85379; 93005; 93010; 93880-TC; 99285-25; G0378; J1644; J7030